=== PATIENT | male | born 2000 | race Caucasian/White ===

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

== ENCOUNTER 2023-05-11 21:02 | Emergency (ER) | payer BC ==
[~2023-05-11] VITALS: Ht 167.6 cm; Wt 96.4 kg
[2023-05-11 21:11] VITALS: TEMP 99.6
[2023-05-11] MEDS ORDERED: NS 1,000 ML IV ONE (21:30)
[2023-05-11] MEDS ORDERED: Ondansetron 4 MG/2 ML VIAL IV ONE (21:30)
[2023-05-11 21:45] LABS: BASO # 0.1 K/mm3 (0.0-0.2); BASO % 0.3 % (0.0-2.0); EOS # 0.1 K/mm3 (0.0-0.7); EOS % 0.8 % (0.0-4.0); GRAN # 13.2 K/mm3 (1.4-6.5); GRAN % 76.2 % (42.2-75.2); HEMATOCRIT 44.3 % (36.0-47.0); LYMPH # 2.5 K/mm3 (1.2-3.4); LYMPH % 14.4 % (20.0-51.0); MEAN CELL VOLUME 83 fl (80.0-95.0); MEAN CORPUSCULAR HEMOGLOBIN 28 pg (26-32); MEAN CORPUSCULAR HGB CONC 34 g/dl (33.0-37.0); MEAN PLATELET VOLUME 8.7 fl (7.4-10.4); MONO # 1.4 K/mm3 (0.1-0.6); MONO % 7.9 % (1.7-9.3); PLATELET COUNT 396 K/mm3 (130-400); RED BLOOD COUNT 5.34 M/mm3 (4.20-5.60); REDCELL DISTRIBUTION WIDTH-CV 12.6 % (11.5-14.5)
[2023-05-11] MEDS ORDERED: Ketorolac 15 MG/ML VIAL IV ONE (21:45)
[2023-05-11] MEDS ORDERED: dexAMETHasone 10 MG/ML VIAL IV ONE (21:45)
[2023-05-11 21:56] LABS: MONOSCREEN NEGATIVE
[2023-05-11 22:39] LABS: ALBUMIN 4.2 gm/dL (3.5-5.0); BILIRUBIN,TOTAL 0.4 mg/dL (0.2-1.2); CALCIUM 10.2 mg/dL (8.4-10.2); CREATININE, serum 0.99 mg/dL (0.72-1.25); POTASSIUM 3.7 mmol/L (3.5-4.5); TOTAL PROTEIN 8.1 gm/dL (6.2-8.1)
[2023-05-11] MEDS ORDERED: NS 50 ML IV ONE (23:11)
[2023-05-11] MEDS ORDERED: Iohexol 300 - 100 ML VIAL IV ONE (23:11)
[2023-05-12] MEDS ORDERED: NS 1,000 ML IV ONE (00:30)
[2023-05-12] MEDS ORDERED: CLEOCIN HCL300 MG PO (00:36)
[2023-05-12 01:31] VITALS: BP 133/72; PULSE 107
== END 2023-05-12 01:31 | disposition home or self-care (01) ==
LOC: COL.ER 21:02
PROVIDERS: Physician Assistant
DX: J02.9 Acute pharyngitis, unspecified (principal); Z90.89 Acquired absence of other organs
CPT/HCPCS: J0295; J1100; J1885; J7030; Q9967